=== PATIENT | male | born 1985 | race Caucasian/White ===

== ENCOUNTER 2020-01-29 23:16 | Emergency (ER) | payer OTHER, SELFPAY ==
--- NOTE | ~2020-01-29 | XR_ITS ---
EXAMINATION: XR chest 1V portable EXAM DATE: 01/29/2020 23:52 INDICATION: Midsternal chest pain, symptoms for days. TECHNIQUE: Portable AP frontal chest x-ray was obtained. Comparison is made to prior examination from 11/29/2009. FINDINGS: The lungs are clear. There are no pleural effusions. The cardiomediastinal silhouette is within normal limits. There is no pneumothorax suspected. The bones and soft tissues are unremarkab le. IMPRESSION: Unremarkable chest x-ray exam. Reviewed, dictated and finalized at location G.
[2020-01-29 23:24] VITALS: BP 160/79; PULSE 109; RESP 16; TEMP 36.8; O2SAT 100
--- NOTE | 2020-01-29 23:26 | ECG_ITS ---
Measurements Intervals [place] Rate: 100 P: [place]: 0 QRS: -15 QRSD: 104 T: 32 QT: 329 QTc: 425 Interpretive Statements SINUS TACHYCARDIA WITH SINUS ARRHYTHMIA VOLTAGE CRITERIA FOR LVH CONSIDER INFERIOR INFARCT, AGE INDETERMINATE BASELINE ARTIFACT- V4 ABNORMAL ECG Electronically Signed On 01-30-2020 7:13:45 CDT by Patel Santiago D.O.
[2020-01-29 23:43] VITALS: PULSE 88
[2020-01-29 23:44] VITALS: O2SAT 99
[2020-01-29 23:47] LABS: Basophils Absolute Auto 0.1 K/mm3 (0.0-0.1); Eosinophils Absolute Auto 0.2 K/mm3 (0-0.3); Eosinophils Percent Auto 3.5 % (0-4.4); Hematocrit 46.7 % (42.0-52.0); Hemoglobin 15.4 g/dL (14.0-18.0); Immature Granulocyte Absolute 0.02 K/mm3 (0.00-0.031); Immature Granulocyte Percent A 0.3 % (0-0.5); Lymphocytes Absolute Auto 1.82 K/mm3 (0.9-3.2); Lymphocytes Percent Auto 28.8 % (18.3-44.2); Mean Corpuscular Hemoglobin 28.1 pg (26-34); Mean Corpuscular Volume 85.2 fl (80-100); Mean Platelet Volume 9.3 fl (7.4-10.4); Monocytes Absolute Auto 0.5 K/mm3 (0.1-0.6); Monocytes Percent Auto 8.1 % (2.6-8.5); Neutrophils Absolute Auto 3.7 K/mm3 (1.3-6.7); Neutrophils Percent Auto 58.3 % (45.5-73.1); Platelet Count Result 355 k/mm3 (150-375); Red Blood Count 5.48 M/mm3 (4.6-6.20); Red Cell Distribution Width 12.7 % (11.5-14.5); White Blood Count 6.3 K/mm3 (4.5-10.0)
[2020-01-29 23:57] LABS: INR 0.9; Prothrombin Time 11.8 Seconds (11.1-14.7)
[2020-01-29 23:58] LABS: Partial Thromboplastin Time 27.2 SECONDS (22.3-36.8)
[2020-01-30 00:01] LABS: Blood Urea Nitrogen 15 mg/dL (9-20); Calcium 9.6 mg/dL (8.4-10.2); Carbon Dioxide 28 mmol/L (22-30); Chloride 104 mmol/L (98-107); Estimated CRCL calculation 115 ml/min; Estimated Glomerular Filt Rate > 60; Glucose 132 mg/dL (75-110); Potassium 3.7 mmol/L (3.4-5.0); Sodium 139 mmol/L (137-145)
[2020-01-30 00:12] LABS: Troponin I < 0.012 ng/mL (0.000-0.034)
[2020-01-30 00:30] VITALS: BP 125/70; PULSE 80; RESP 14; O2SAT 97
[2020-01-30 01:41] VITALS: BP 112/80; PULSE 75; RESP 13; O2SAT 100
[2020-01-30 02:41] VITALS: BP 124/77; PULSE 72; RESP 21; TEMP 36.3; O2SAT 99
[2020-01-30 03:57] LABS: Troponin I < 0.012 ng/mL (0.000-0.034)
--- NOTE | 2020-01-30 04:02 | ED.CHESTPAIN ---
HPI - Chest Pain General Chief Complaint: Chest Pain Stated Complaint: chest pressure Time Seen by Provider: 01/30/20 02:50 Source: patient Mode of arrival: ambulatory Limitations: no limitations History of Present Illness HPI narrative: This patient is a 34 yo male who presents with c/o sore throat and chest pain. Patient states for the past week he has felt like something is in his throat. He states he has been having mild pain with swallowing. Over the past 4 days he has had intermittent chest pain. He thinks it may be worse with working. He denies associated fever, chills, cough, nausea, vomiting or shortness of breath. He denies signs of DVT. 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 The telemedicine physician recommended patient come to ER for evaluation of chest pain and he also recommended patient be tested for COVID. He states he has minimal chest pain now Related Data Allergies Allergy/AdvReac Type Severity Reaction Status Date / Time No Known Allergies Allergy Verified 01/29/20 23:22 Review of Systems Review of Systems: All systems reviewed & are unremarkable except as noted in HPI and below Constitutional: Constitutional: Denies chills, Denies fever(s) and Denies weakness ENT: Reports dysphagia and Reports sore throat Cardiovascular: Cardiovascular: Reports chest pain, Denies rapid heart rate and Denies radiating jaw, neck or arm pain Respiratory: Respiratory: Denies cough, Denies dyspnea and Denies wheezing Gastrointestinal: Gastrointestinal: Denies abdominal pain, Denies diarrhea, Denies nausea and Denies vomiting Musculoskeletal: Musculoskeletal: Denies back pain PMFSH Past Medical History Medical History (Updated 01/30/20 @ 05:45 by Jaelyn Caldwell MD) Patient denies medical problems Surgical History Surgical History (Updated 01/30/20 @ 04:03 by Jaelyn Caldwell MD) No pertinent past surgical history Social History Social History (Updated 01/30/20 @ 04:03 by Jaelyn Caldwell MD) Smoking status: Never smoker Alcohol intake: never Substance use type: marijuana Exam Narrative: Exam Narrative: GENERAL: Well-appearing, well-nourished, and in no acute distress. HEAD: Normocephalic, atraumatic EYES: PERRLA and EOMI, conjunctiva clear without discharge EARS: TM's clear bilaterally without erythema or dullness NOSE: Nares clear, no rhinorrhea or epistaxis THROAT:Mucous membranes moist, mild erythema and edema to uvula NECK: Supple, without lymphadenopathy or mass RESPIRATORY: No respiratory distress, Airway patent, Respirations non-labored, Clear to auscultation without rales, rhonchi or wheeze HEART: Regular rate and rhythm. No murmur heard. Normal peripheral pulses. ABDOMEN: Soft, nontender, nondistended, normal active bowel sounds. No masses. No rebound or guarding, No organomegaly. EXTREMITIES: No edema, normal strength with full range of motion. SKIN: Warm, dry, normal color without rash NEURO: Alert and oriented x3. CN 2-12 grossly intact. No focal deficits. PSYCH: Normal mood and affect. Course Reevaluation(s) Reevaluation #1: PAtient states his pain has improved after taking GI cocktail. He understands he will need to follow up with PCP. He is pending covid results. His pain is atypical chest pain. Date: 01/30/20 Time: 05:43 Vital Signs Vital signs: Vital Signs Temperature 98.2 F 01/29/20 23:24 Pulse Rate 109 H 01/29/20 23:24 Respiratory Rate 16 01/29/20 23:24 Blood Pressure 160/79 H 01/29/20 23:24 Pulse Oximetry 100 01/29/20 23:24 Temperature 97.9 F 01/30/20 06:06 Pulse Rate 71 01/30/20 06:06 Respiratory Rate 17 01/30/20 06:06 Blood Pressure 125/69 01/30/20 06:06 Pulse Oximetry 100 01/30/20 06:06 MDM - Chest Pain Lab Data Attestation: I reviewed the patient's lab results. Result diagrams: 01/29/20 23:39 01/29/20 23:39 Labs: Lab Results
[2020-01-30 04:12] VITALS: BP 111/71; PULSE 75; RESP 14; O2SAT 100
[2020-01-30 04:15] LABS: Lipase 58 U/L (23-300)
[2020-01-30 04:17] LABS: D Dimer 0.27 ug/mL (<0.48)
[2020-01-30] MEDS: BELLADONNA ALK/PHENOB ELIX 10 ML, MAG HYDROX/ALUMINUM HYD/SIMETH 30 ML, LIDOCAINE HCL 2... PO (04:29)
[2020-01-30 06:06] VITALS: BP 125/69; PULSE 71; RESP 17; TEMP 36.6; O2SAT 100
[2020-01-30 14:46] LABS: SARS-CoV-2 RNA PCR Negative
== END 2020-01-30 06:17 | disposition home or self-care (01) ==
PROVIDERS: Emergency Provider General Practice
DX: R07.89 Other chest pain (principal); J02.9 Acute pharyngitis, unspecified; Z20.828 Contact with and (suspected) exposure to other viral communicable diseases; R00.0 Tachycardia, unspecified; R94.31 Abnormal electrocardiogram [ECG] [EKG]
CPT/HCPCS: 36415; 71045; 80048; 83690; 84484; 85025; 85380; 85610; 85730; 87081; 87635; 87880; 93005; 99284; A9270; C9803; U0003

== ENCOUNTER 2020-06-10 16:24 | Emergency (ER) | payer OTHER, SELFPAY ==
--- NOTE | ~2020-06-10 | CT_ITS ---
EXAMINATION: CT abdomen pelvis w con INDICATION: Epigastric abdominal pain TECHNIQUE: Computed tomographic images of the abdomen and pelvis were obtained after the administrati on of 100 cc of Omnipaque 350 intravenous contrast. The dose-length product (DLP) was 1536.99 mGy-cm. Automated exposure control and iterative reconstruction technique were employed. COMPARISON: None available FINDINGS: The lung bases are clear. The heart size is normal. There is mild wall thickening of the di stal esophagus. The liver, spleen, pancreas, gallbladder, and adrenal glands are normal. There is a 2 .5 cm cyst of the left kidney. The right kidney is unremarkable. No pathologically enlarged abdominal or pelvic lymph nodes are identified. There is no free intraperitoneal gas or evidence of bowel obst ruction. There are appendicoliths in the otherwise normal appendix. IMPRESSION: 1. Mild wall thickening of the distal esophagus which could reflect esophagitis. Reviewed, dictated and finalized at location A. IMPRESSION: 1. Mild wall thickening of the distal esophagus which could reflect esophagitis .
[2020-06-10 16:58] VITALS: BP 146/82; PULSE 90; RESP 18; TEMP 36.9; O2SAT 100
[2020-06-10 17:14] LABS: Basophils Absolute Auto 0.1 K/mm3 (0.0-0.1); Basophils Percent Auto 0.9 % (0.2-1.2); Eosinophils Absolute Auto 0.4 K/mm3 (0-0.3); Eosinophils Percent Auto 4.7 % (0-4.4); Hematocrit 44.9 % (42.0-52.0); Immature Granulocyte Absolute 0.02 K/mm3 (0.00-0.031); Immature Granulocyte Percent A 0.2 % (0-0.5); Lymphocytes Absolute Auto 2.63 K/mm3 (0.9-3.2); Lymphocytes Percent Auto 30.4 % (18.3-44.2); Mean Corpuscular HGB Conc 33.4 g/dl (32-36); Mean Corpuscular Hemoglobin 28.3 pg (26-34); Mean Corpuscular Volume 84.7 fl (80-100); Mean Platelet Volume 9.2 fl (7.4-10.4); Monocytes Absolute Auto 0.6 K/mm3 (0.1-0.6); Monocytes Percent Auto 6.4 % (2.6-8.5); Neutrophils Percent Auto 57.4 % (45.5-73.1); Platelet Count Result 317 k/mm3 (150-375); Red Cell Distribution Width 12.9 % (11.5-14.5); White Blood Count 8.7 K/mm3 (4.5-10.0)
[2020-06-10 17:26] LABS: Alanine Aminotransferase 52 U/L (4-50); Albumin Level 4.4 g/dL (3.5-5.1); Alkaline Phosphatase 58 U/L (38-126); Anion Gap 8 mmol/L (8-16); Aspartate Amino Transferase 32 U/L (17-59); Bilirubin,Total 1.5 mg/dL (0.2-1.3); Blood Urea Nitrogen 15 mg/dL (9-20); Calcium 9.6 mg/dL (8.4-10.2); Carbon Dioxide 26 mmol/L (22-30); Chloride 103 mmol/L (98-107); Estimated CRCL calculation 144 ml/min; Estimated Glomerular Filt Rate > 60; Glucose 97 mg/dL (75-110); Lipase 40 U/L (23-300); Potassium 3.9 mmol/L (3.4-5.0); Sodium 137 mmol/L (137-145)
[2020-06-10 17:33] LABS: Add Urine Microscopic? NO; Appearance Urine Clear (Clear); Bilirubin Urine Negative (Negative); Blood Urine Negative (Negative); Color Urine Yellow (Yellow); Glucose Urine UA Negative (Negative); Ketones Urine Negative (Negative); Leukocyte Esterase Ur Negative LEU/UL (Negative); Nitrate Urine Negative (Negative); Protein Urine Negative (Negative); Specific Grav Ur 1.019 (1.001-1.035); Urobilinogen Urine Negative mg/dL (<2.0)
[2020-06-10 21:35] VITALS: BP 158/85; PULSE 71; RESP 17; O2SAT 99
--- NOTE | 2020-06-10 21:37 | ED.ABDPAIN ---
HPI - Abdominal Pain General Chief Complaint: Abdominal Pain Stated Complaint: abd pain Time Seen by Provider: 06/10/20 21:35 History of Present Illness HPI narrative: Pt c/o abd pain, epigastric, sharp, 6/10, radiating to back, started months ago but worse the past few weeks, exacerbated by food. Denies any cp, sob, n/v/d or fever. Denies any GI bleeding. Related Data Allergies Allergy/AdvReac Type Severity Reaction Status Date / Time No Known Allergies Allergy Verified 01/29/20 23:22 Review of Systems Review of Systems: All systems reviewed & are unremarkable except as noted in HPI and below Constitutional: Constitutional: Denies body ache(s), Denies chills, Denies excessive sweating, Denies fatigue, Denies fever(s), Denies headache(s), Denies lethargy, Denies malaise, Denies weakness and Denies weight loss Eyes: Eyes: Denies blurry vision, Denies change in vision and Denies loss of vision ENT: Denies dizziness, Denies ear discharge, Denies headache(s), Denies lip swelling, Denies epistaxis, Denies nasal congestion, Denies neck pain, Denies throat swelling and Denies tongue swelling Cardiovascular: Cardiovascular: Denies chest pain, Denies chest pain at rest, Denies chest pain with activity, Denies diaphoresis, Denies rapid heart rate, Denies edema, Denies irregular heart rhythm, Denies lightheadedness, Denies palpitations, Denies dyspnea and Denies dyspnea on exertion Respiratory: Respiratory: Denies chest congestion, Denies cough, Denies hemoptysis, Denies dyspnea and Denies dyspnea on exertion Gastrointestinal: Gastrointestinal: Denies melena, Denies hematochezia, Denies diarrhea, Denies nausea, Denies vomiting and Denies hematemesis Musculoskeletal: Musculoskeletal: Denies abnormal gait, Denies deformity, Denies joint swelling, Denies limited range of motion, Denies neck pain and Denies numbness Neurologic: Denies Abnormal speech present, Denies abnormal gait, Denies confusion, Denies dizziness, Denies headache(s), Denies focal weakness, Denies loss of vision, Denies numbness, Denies Other visual disturbances, Denies Sensory deficit (Neuro) and Denies weakness Psychiatric: Psychiatric: Denies confusion, Denies depression, Denies auditory hallucinations, Denies homicidal ideation and Denies suicidal ideation Endocrine: Endocrine: Denies cold intolerance, Denies excessive sweating, Denies fatigue, Denies heat intolerance and Denies palpitations Hematologic/Lymphatic: Hematologic/Lymphatic: Denies easy bleeding and Denies easy bruising Allergic/Immunologic: Allergic/Immunologic: Denies lip swelling, Denies throat swelling and Denies tongue swelling PMFSH Past Medical History Medical History (Updated 06/10/20 @ 23:51 by Brian Riley MD) Patient denies medical problems Surgical History Surgical History (Updated 01/30/20 @ 04:03 by Jaelyn Caldwell MD) No pertinent past surgical history Social History Social History (Updated 01/30/20 @ 04:03 by Jaelyn Caldwell MD) Smoking status: Never smoker Alcohol intake: never Substance use type: marijuana Gender identity (if verbalized by the patient): Male Exam Const: General: cooperative, healthy appearing, comfortable, no acute distress, well developed, alert and awake; No confusion Orientation/consciousness: oriented to person, oriented to place, oriented to time, patient oriented x3 and No confusion Limitations: no limitations HENMT: Head: normal to inspection, normocephalic and atraumatic Ears: hearing grossly normal bilaterally, TM normal on the right and TM normal on the left General nose exam: Normal external nose present, Normal nares present and No nasal discharge present Face and sinus: normal facial exam Mouth: Yes Normal oral and palatal mucosa present, Yes lip normal, Yes tongue normal and Yes oropharynx normal Throat: posterior oropharynx normal, tonsils normal and uvula midline Eyes: General: appearance normal, both eyes and all relate
[2020-06-10 22:54] VITALS: BP 99/71; PULSE 66; RESP 17; O2SAT 97
[2020-06-11 00:10] VITALS: BP 126/74; PULSE 78; RESP 18; O2SAT 99
== END 2020-06-11 00:11 | disposition home or self-care (01) ==
PROVIDERS: Emergency Medicine; Emergency Provider Emergency Medicine
DX: K21.9 Gastro-esophageal reflux disease without esophagitis (principal); R93.3 Abnormal findings on diagnostic imaging of other parts of digestive tract
CPT/HCPCS: 36415; 74177; 80053; 81003; 83690; 85025; 99284; Q9967

== ENCOUNTER 2023-04-05 11:03 | Emergency (ER) | payer OTHER, SELFPAY ==
[2023-04-05] VITALS (21 sets, daily range): BP systolic 122–155; BP diastolic 79–84; PULSE 58–77; RESP 12–20; TEMP 36.4; O2SAT 99–100
--- NOTE | ~2023-04-05 | CT_ITS ---
EXAMINATION: CT abdomen pelvis w con DATE: 04/05/2023 15:11 INDICATION: Diffuse abdominal tenderness, radiating into groin. Nausea. Possible hernia. TECHNIQUE: Computed tomography (CT) of the abdomen and pelvis was performed with 100 CC Omnipaque 350 intravenous contrast. Automated exposure control and iterative reconstruction technique were employe d. Exam dose: 1530.20 mGy-cm total exam DLP. COMPARISON: 06/10/2020 CT abdomen pelvis FINDINGS: The lung bases are clear. Normal heart size. Calcified right hilar nodes consistent with ol d pulmonary granulomatous disease. No pericardial or pleural effusion. Small sliding hiatal hernia. 7 mm lateral segment left hepatic cyst. The liver, spleen, gallbladder, bile ducts, pancreas, pancrea tic duct and adrenal glands are otherwise unremarkable. Normal right kidney. Approximately 2.3 cm left renal cyst. The left kidney is otherwise unremarkable. No urinary tract calculus or hydroureteronephrosis. The urinary bladder and prostate gland are unrem arkable. Normal caliber of the abdominal aorta. No intraperitoneal or retroperitoneal or pelvic mass lesion or adenopathy or ascites is noted. There are appendicoliths. The largest measures up to 5.5 mm. No appendiceal dilatation. There is no s ignificant change in appearance of the appendix or the appendicolith since 06/10/2020. There is no adalberto rounding inflammatory change or abnormal fluid collection. Mild colonic diverticulosis; no CT evidenc e of diverticulitis. No bowel obstruction or intraperitoneal free air. IMPRESSION: Chronic appendicoliths, unchanged since 06/10/2020 Diverticulosis of the colon; no CT evidence of diverticulitis 7 mm lateral segment left hepatic cyst and 2.3 cm left renal cyst Reviewed, dictated and finalized at Location [facility]. Reviewed, dictated and finalized at location B.
--- NOTE | 2023-04-05 12:59 | ECG_ITS ---
Measurements Intervals [place] Rate: 59 P: 54 [place]: 146 QRS: -1 QRSD: 93 T: 13 QT: 387 QTc: 385 Interpretive Statements SINUS BRADYCARDIA BASELINE ARTIFACT- I, III, AVR, AVL BORDERLINE ECG COMPARED TO ECG 01/29/2020 23:26:16 SINUS BRADYCARDIA NOW PRESENT Electronically Signed On 04-05-2023 14:35:15 CDT by Patel Santiago D.O.
[2023-04-05 13:12] LABS: Basophils Absolute Auto 0.1 K/mm3 (0.0-0.1); Basophils Percent Auto 0.9 % (0.2-1.2); Eosinophils Absolute Auto 0.4 K/mm3 (0-0.3); Eosinophils Percent Auto 5.5 % (0-4.4); Hematocrit 43.5 % (42.0-52.0); Hemoglobin 14.1 g/dL (14.0-18.0); Immature Granulocyte Absolute 0.01 K/mm3 (0.00-0.031); Immature Granulocyte Percent A 0.1 % (0-0.5); Lymphocytes Absolute Auto 1.78 K/mm3 (0.9-3.2); Lymphocytes Percent Auto 25.6 % (18.3-44.2); Mean Corpuscular HGB Conc 32.4 g/dl (32-36); Mean Corpuscular Volume 86.5 fl (80-100); Mean Platelet Volume 8.7 fl (7.4-10.4); Monocytes Absolute Auto 0.4 K/mm3 (0.1-0.6); Monocytes Percent Auto 6.3 % (2.6-8.5); Neutrophils Absolute Auto 4.3 K/mm3 (1.3-6.7); Neutrophils Percent Auto 61.6 % (45.5-73.1); Platelet Count Result 302 k/mm3 (150-375); Red Blood Count 5.03 M/mm3 (4.6-6.20); Red Cell Distribution Width 13.3 % (11.5-14.5); White Blood Count 6.9 K/mm3 (4.5-10.0)
[2023-04-05 13:17] LABS: Appearance Urine Clear (Clear); Bilirubin Urine Negative (Negative); Blood Urine Negative (Negative); Color Urine Yellow (Yellow); Glucose Urine UA Negative (Negative); Ketones Urine Negative (Negative); Leukocyte Esterase Ur Negative LEU/UL (Negative); Nitrate Urine Negative (Negative); Protein Urine Negative (Negative); Specific Grav Ur 1.019 (1.001-1.035); Urobilinogen Urine 0.2 mg/dL (<2.0)
[2023-04-05 13:31] LABS: Alanine Aminotransferase 32 U/L (6-50); Alkaline Phosphatase 52 U/L (38-126); Anion Gap 4 mmol/L (8-16); Aspartate Amino Transferase 25 U/L (17-59); Blood Urea Nitrogen 11 mg/dL (9-20); Calcium 8.7 mg/dL (8.4-10.2); Carbon Dioxide 33 mmol/L (22-30); Chloride 102 mmol/L (98-107); Estimated CRCL calculation 126 ml/min; Estimated Glomerular Filt Rate > 60; Glucose 91 mg/dL (65-110); Lipase 37 U/L (23-300); Potassium 4.1 mmol/L (3.4-5.0); Sodium 139 mmol/L (137-145)
[2023-04-05 13:41] LABS: Troponin I < 0.012 ng/mL (0.000-0.034)
[2023-04-05 14:13] LABS: Add Urine Microscopic? NO
--- NOTE | 2023-04-05 14:23 | ED.ABDPAIN ---
HPI - Abdominal Pain General Chief Complaint: Abdominal Pain Stated Complaint: hernia, abd pain Time Seen by Provider: 04/05/23 12:58 Source: patient Mode of arrival: ambulatory Limitations: no limitations History of Present Illness HPI narrative: Patient is a 37-year-old male who presents the ED with diffuse abdominal pain. Patient reports having intermittent pain for some time now, but states pain has become more bothersome and severe over the last couple of weeks. He complains of pain diffusely throughout his abdomen. He is concerned he may have a hernia. He states at times he has discomfort in his perineum, denies ever feeling a hernia bulge. Denies testicular pain or swelling. Denies urinary symptoms. Reports intermittent nausea, denies vomiting, diarrhea, constipation. Denies fevers. Patient has been taking antacids, acid reflux medication, and ibuprofen for the pain. Patient initially reported to ED triage nurse that he was having chest pain. Denied CP upon my evaluation. Related Data Allergies Allergy/AdvReac Type Severity Reaction Status Date / Time No Known Allergies Allergy Verified 01/29/20 23:22 Review of Systems Review of Systems: CONSTITUTIONAL: Denies fever, chills, or sweats. CARDIOVASCULAR: See HPI. RESPIRATORY: Denies dyspnea. GASTROINTESTINAL: See HPI. GENITOURINARY: See HPI. SKIN: Denies rash or itching. MUSCULOSKELETAL: Denies back pain, joint pain, or myalgia. All systems reviewed & are unremarkable except as noted in HPI and below PMFSH Past Medical History Medical History (Updated 04/05/23 @ 16:46 by Perla Rucker PA-C) Patient denies medical problems Surgical History Surgical History (Updated 01/30/20 @ 04:03 by Jaelyn Caldwell MD) No pertinent past surgical history Social History Social History (Updated 01/30/20 @ 04:03 by Jaelyn Caldwell MD) Smoking status: Never smoker Alcohol intake: never Substance use type: marijuana Gender identity (if verbalized by the patient): Male Exam Narrative: GENERAL: Well appearing, morbidly obese with BMI of 40.4, non-toxic, in no acute distress. HEAD: Normocephalic, atraumatic. NECK: Supple. No adenopathy, no masses. RESPIRATORY: Airway patent, respirations nonlabored. Clear to auscultation bilaterally, no rales, rhonchi, wheezing. CARDIOVASCULAR: Regular rate and rhythm without murmurs, rubs, or gallops. Radial pulses 2+ and equal bilaterally. ABDOMINAL: Soft, diffuse nonfocal tenderness to palpation throughout abdomen, no rebound. Nondistended, no hepatosplenomegaly. Normoactive BS. MUSCULOSKELETAL: Moves all extremities. Strength/ROM intact without gross deformities. SKIN: Warm, dry, normal color. No rashes. NEURO: A&O X3. Speech clear. Cranial nerves II-XII grossly intact. Steady gait. No ataxic movements. PSYCHIATRIC: Appropriate mood and affect. Normal interaction. Course Vital Signs Vital signs: Vital Signs Temperature 97.5 F L 04/05/23 11:04 Pulse Rate 77 04/05/23 11:04 Respiratory Rate 16 04/05/23 11:04 Blood Pressure 155/81 H 04/05/23 11:04 Pulse Oximetry 100 04/05/23 11:04 Temperature 97.5 F L 04/05/23 11:04 Pulse Rate 58 L 04/05/23 16:30 Respiratory Rate 12 04/05/23 16:30 Blood Pressure 122/79 04/05/23 14:46 Pulse Oximetry 100 04/05/23 16:30 MDM - Abdominal Pain MDM Narrative Medical decision making narrative: Patient presented to ED with several week history of diffuse abdominal pain, no significant associated symptoms. Vitals stable upon arrival. Afebrile. Patient with mild tenderness diffusely throughout abdomen, no focal tenderness. No signs of surgical abdomen on exam. CBC without leukocytosis or anemia. CMP unremarkable, no significant electrolyte abnormalities. Stable kidney function. Normal LFTs and lipase. Urinalysis without signs of infection or dehydration. EKG nonischemic. Troponin negative. Patient denying active chest pain. CT
== END 2023-04-05 17:04 | disposition home or self-care (01) ==
PROVIDERS: Emergency Medicine; Emergency Provider Physician Assistant
DX: R10.84 Generalized abdominal pain (principal); K57.30 Diverticulosis of large intestine without perforation or abscess without bleeding; K38.1 Appendicular concretions; R00.1 Bradycardia, unspecified
CPT/HCPCS: 36415; 74177; 80053; 81003; 83690; 84484; 85025; 93005; 99284; Q9967

== ENCOUNTER 2023-05-03 07:37 | Outpatient (CLI) | payer OTHER, SELFPAY ==
--- NOTE | ~2023-05-03 | US_ITS ---
EXAMINATION: US right upper quadrant DATE: 05/03/2023 08:19 INDICATION: Calculus of bile duct without cholangitis. TECHNIQUE: Multiple grayscale and Doppler ultrasound images of the abdomen were obtained. COMPARISON: CT abdomen and pelvis 04/05/2023 FINDINGS: The visualized portion of the body of the pancreas is normal. There is diffuse hepatic stea tosis. There is normal flow in main portal vein. The gallbladder is normal in size. No gallstones or gallbladder wall thickening. There is no sonographic Frausto sign. The common duct is normal and measu res 5 mm. IMPRESSION: 1. Diffuse hepatic steatosis. Reviewed, dictated and finalized at location A.
== END 2023-05-03 07:38 ==
LOC: GOSHIMG 07:38
PROVIDERS: PCP Emergency Medicine; Visit Provider Surgery
DX: K80.50 Calculus of bile duct without cholangitis or cholecystitis without obstruction (principal); K38.9 Disease of appendix, unspecified; K76.0 Fatty (change of) liver, not elsewhere classified
CPT/HCPCS: 76705

== ENCOUNTER 2023-05-06 07:50 | Outpatient (CLI) | payer OTHER, SELFPAY ==
--- NOTE | ~2023-05-06 | NM_ITS ---
EXAMINATION: NM hepatobiliary wo pharm DATE: 05/06/2023 10:49 INDICATION: Choledocholithiasis without cholangitis. COMPARISON: None. TECHNIQUE: 4.6 mCi Tc-99m mebrofenin (Choletec) was administered intravenously. Scintigraphic images of the abdomen were obtained for one hour. At the 1 hour time point, the patient drank 8 oz Ensure, and imaging was continued for 60 minutes. Gallbladder ejection fraction was calculated by the technol ogist. FINDINGS: There is normal clearance of radiotracer from the blood pool. There is homogeneous tracer u ptake by the liver. Activity progresses to the bowel and gallbladder. The gallbladder ejection fract ion (GBEF) is 32%. Note that with this technique, normal GBEF >= 33%. IMPRESSION: 1. Mildly decreased gallbladder ejection fraction consistent with gallbladder dysfunction or chronic cholecystitis in the appropriate clinical setting. Reviewed, dictated and finalized at location A.
== END 2023-05-06 07:51 | disposition home or self-care (01) ==
PROVIDERS: PCP Emergency Medicine; Visit Provider Surgery
DX: K80.50 Calculus of bile duct without cholangitis or cholecystitis without obstruction (principal); K38.9 Disease of appendix, unspecified
CPT/HCPCS: 78226; A9537

== ENCOUNTER 2024-11-21 16:47 | Emergency (ER) | payer OTHER, SELFPAY ==
--- NOTE | ~2024-11-21 | CT_ITS ---
EXAMINATION: CT lumbar spine wo con DATE: 11/21/2024 17:43 INDICATION: Lumbar radiculopathy. TECHNIQUE: Computed tomography (CT) of the lumbar spine was performed without intravenous contrast. A utomated exposure control and iterative reconstruction technique were employed. The dose-length produ ct was 1344.83 mGy-cm. COMPARISON: None FINDINGS: There is 4 degrees levocurvature of thoracolumbar spine. There is mild chronic anterior wed ging of T12 and L1 vertebral bodies. There is mildly decreased disc height at L4-L5. Osseous central spinal canal is developmentally small in lumbar spine. The following disc levels are specifically dis cussed: L1-L2: The disc does not extend beyond the endplate margin. There is mild bilateral facet joint osteo arthritis. There is no neural foraminal stenosis. There is no central canal stenosis. L2-L3: The disc does not extend beyond the endplate margin. There is moderate bilateral facet joint o steoarthritis. There is no neural foraminal stenosis. There is no central canal stenosis. L3-L4: The disc is bulging. There is moderate right and severe left facet joint osteoarthritis. There is mild bilateral neural foraminal stenosis. There is mild central canal stenosis. L4-L5: The disc is bulging. There is severe bilateral facet joint osteoarthritis. There is mild bilat eral neural foraminal stenosis. There is mild central canal stenosis. L5-S1: The disc is bulging. There is severe bilateral facet joint osteoarthritis. There is mild bilat eral neural foraminal stenosis. There is mild central canal stenosis. IMPRESSION: 1. Mild lumbar spondylosis. Reviewed, dictated and finalized at location A. ER CATCHER TOBACCO IMPRESSION: 1. Mild lumbar spondylosis.
--- NOTE | ~2024-11-21 | US_ITS ---
EXAMINATION: US venous doppler [facility] DATE: 11/21/2024 17:55 INDICATION: Lower limb swelling. TECHNIQUE: Grayscale ultrasound images without and with compression and Doppler ultrasound images of the bilateral lower extremity veins were obtained. COMPARISON: None. FINDINGS: The visualized portions of right common femoral vein, profunda (deep) femoral vein, femoral vein, pop liteal vein, peroneal veins, posterior tibial veins, and greater saphenous vein outflow are patent. The visualized portions of left common femoral vein, profunda femoral vein, femoral vein, popliteal v ein, and greater saphenous vein outflow are patent. There is thrombus in left posterior tibial and pe roneal veins. IMPRESSION: 1. Deep vein thrombosis involving the left posterior tibial and peroneal veins. Reviewed, dictated and finalized at location A. WORK ESTIMATOR IMPRESSION: 1. Deep vein thrombosis involving the left posterior tibial and peroneal veins .
--- NOTE | ~2024-11-21 | CT_ITS ---
EXAMINATION: CTA chest PE protocol DATE: 11/21/2024 19:34 PODIATRIC TECHNICIAN INDICATION: Intermittent chest pain with unilateral below the knee venous thrombosis. TECHNIQUE: Computed tomographic angiography (CTA) of the chest was performed with 100 mL Omnipaque-35 0 intravenous contrast. The dose-length product was 1032.52 mGy-cm. Maximum intensity projection 3D-r econstructions of the aorta and other arteries were constructed by the technologist on a separate wor kstation. COMPARISON: None. FINDINGS/OBSERVATIONS: PULMONARY ARTERIES: No filling defect is identified within the main or proximal pulmonary artery. The main pulmonary artery is not enlarged. THORACIC AORTA: No aneurysmal dilatation or dissection is present. The great vessels are intact LUNGS: The lungs are clear. MEDIASTINUM: No morphologically suspicious or pathologically enlarged lymph nodes are identified with in the mediastinum or bilateral axilla. BONES OF THE CHEST: No acute fracture. No significant degenerative disease. No lytic or blastic lesions. HEART: The heart is enlarged, without pericardial effusion. IMPRESSION: No pulmonary embolus. No thoracic aortic dissection. The lungs are clear. Reviewed, dictated and finalized at location A. ATRIC TECHNICIAN
[2024-11-21 16:53] VITALS: BP 173/108; PULSE 97; RESP 20; TEMP 36.4; O2SAT 100
--- NOTE | 2024-11-21 17:37 | ED_ITS ---
HPI - Extremity Problem General Chief complaint: Extremity Problem,Nontraumatic Stated complaint: ?DVT Time Seen by Provider: 11/21/24 17:15 History of Present Illness HPI Narrative: 39-year-old male with no past medical history presents to emergency department for concerns for DVT. Patient states he has been having 3 weeks of pain to the superior medial thighs bilaterally. No injury or trauma to this region. Since that time he gets numbness and tingling that radiates down into his feet. He does report pain diffusely through his back. Denies saddle anesthesia, bowel or bladder incontinence. States he is unsure if he has had some lower extremity edema. He denies history of DVT. He does state that a few days ago he rode in a car for 12 hours coming home from vacation. He states the pain is worse when he sits in certain positions for long periods of time. Patient states he goes his symptoms and wanted to make sure he did not have any blood clots. Related Data Allergies Allergy/AdvReac Type Severity Reaction Status Date / Time No Known Allergies Allergy Verified 11/21/24 16:56 Review of Systems 2 Review of Systems: All systems reviewed & are unremarkable except as noted in HPI and below PMFSH Past Medical History Medical History Patient denies medical problems Surgical History Surgical History No pertinent past surgical history Social History Social History Smoking status: Never smoker Alcohol intake: never Substance use type: marijuana Gender identity (if verbalized by the patient): Male Exam 2 Narrative: GENERAL: Well-appearing, well-nourished, and in no acute distress. HEAD: Normocephalic, atraumatic. EYES: EOMI. ENT: Nares clear, no rhinorrhea or epistaxis. Mucous membranes moist. NECK: Supple. BACK: Mild lumbar spinous tenderness or spinous tenderness without crepitus, step-offs or deformities. No tenderness to thoracic spine CHEST: Clear to auscultation. No respiratory distress. HEART: Regular rate and rhythm. No murmur heard. Normal peripheral pulses. ABDOMEN: Soft, nontender, nondistended, normal active bowel sounds. EXTREMITIES: Minimal tenderness to palpation of the superior medial thigh bilaterally with no overlying skin changes or deformity. Negative Homans bilaterally. DP pulses 2+. Sensation intact. Negative straight leg raise bilaterally. No edema SKIN: Warm, dry, no rash. NEURO: No focal deficits. Alert and oriented x3 Course Vital Signs Vital signs: Vital Signs Temperature 97.6 F 11/21/24 16:53 Pulse Rate 97 11/21/24 16:53 Respiratory Rate 20 11/21/24 16:53 Blood Pressure 173/108 H 11/21/24 16:53 Pulse Oximetry 100 11/21/24 16:53 Oxygen Delivery Room Air 11/21/24 16:53 Temperature 97.6 F 11/21/24 16:53 Pulse Rate 67 11/21/24 18:01 Respiratory Rate 17 11/21/24 18:01 Blood Pressure 140/87 11/21/24 18:01 Pulse Oximetry 98 11/21/24 18:01 Oxygen Delivery Room Air 11/21/24 16:53 MDM - Extremity (Nontraumatic) MDM Narrative Medical decision making narrative: 39-year-old male presents emergency department for bilateral lower extremity pain for the past 3 weeks. Patient endorses concern for DVTs. Triage vitals with hypertension, otherwise unremarkable. He is afebrile nontoxic appearing. Exam significant for the above. He does have some mild lumbar tenderness on exam but is neurovascularly intact. He has no red flag back pain signs. Will obtain bilateral dopplers and CT lumbar spine. CT lumbar spine shows mild lumbar spondylosis. Bilateral lower extremity Dopplers shows ET to the posterior tibial and peroneal veins. Patient was updated on results. Upon further questioning he is endorsing intermittent chest tightness to the left side but he cannot identify any aggravating alleviating factors. Has endorse some shortness of breath. No history of PE. Denies hemoptysis, lightheadedness or dizziness. Will add on lab work, chest pain workup and CTA chest PE for further evaluation. EKG shows normal sinus rhythm with sinus arrhythmia, normal VT interval, normal QRS duration, normal QTC, no ischemic changes. Troponin within normal limits. CTA chest PE shows no PE. Patient updated on results. BP improved. HAS BLED score is 0. He has normal renal function. No recent head injury or trauma, no active GI bleed. He does endorse having bright red blood with the bowel movements a week ago but that has since resolved. He does endorse history of hemorrhoids. I did offer she from a rectal exam hemoccult however patient politely declined given bleeding has resolved. Pt will be started on Eliquis for DVT. Advised to f/u with PCP. Discussed return precautions. He is agreeable with the plan and verbalized understanding. D/c in stable condition. Lab Data 11/21/24 18:29 11/21/24 18:29 Labs: Lab Results 11/21/24 11/21/24 11/21/24 Range/Units 18:29 18:29 18:29 WBC 8.8 (4.5-10.0) K/mm3 RBC 4.87 (4.6-6.20) M/mm3 Hgb 13.8 L (14.0-18.0) g/dL Hct 42.1 (42.0-52.0) % MCV 86.4 (80-100) fl MCH 28.3 (26-34) pg MCHC 32.8 (32-36) g/dl RDW 13.7 (11.5-14.5) % Plt Count 314 (150-375) k/mm3 MPV 8.9 (7.4-10.4) fl Immature Gran % (Auto) 0.2 (0-0.5) % Neut % (Auto) 57.0 (45.5-73.1) % Lymph % (Auto) 30.0 (18.3-44.2) % Latimer % (Auto) 8.3 (2.6-8.5) % Eos % (Auto) 3.6 (0-4.4) % Baso % (Auto) 0.9 (0.2-1.2) % Lymph # (Auto) 2.63 (0.9-3.2) K/mm3 Latimer # (Auto) 0.7 H (0.1-0.6) K/mm3 Eos # (Auto) 0.3 (0-0.3) K/mm3 Baso # (Auto) 0.1 (0.0-0.1) K/mm3 Abs Immat Gran (auto) 0.02 (0.00-0.031) K/mm3 Absolute Neuts (auto) 5.0 (1.3-6.7) K/mm3 Absolute Nucleated RBC 0.000 (0.0-0.012) K/mm3 Nucleated RBC % 0.0 (0.0-0.2) % PT 12.5 (11.1-14.7) Seconds INR 0.9 APTT 25.7 (22.3-36.8) Seconds Sodium Cancelled 139 Potassium Cancelled 4.2 Chloride Cancelled Carbon Dioxide Anion Gap BUN Creatinine Estim Creat Clear Calc Estimated GFR Glucose Calcium Troponin I (0.000-0.034) ng/mL NT-Pro-B Natriuret Pep (19.9-100) pg/mL Lipase (23-300) U/L 11/21/24 11/21/24 11/21/24 Range/Units 18:29 18:29 18:29 WBC (4.5-10.0) K/mm3 RBC (4.6-6.20) M/mm3 Hgb (14.0-18.0) g/dL Hct (42.0-52.0) % MCV (80-100) fl MCH (26-34) pg MCHC (32-36) g/dl RDW (11.5-14.5) % Plt Count (150-375) k/mm3 MPV (7.4-10.4) fl Immature Gran % (Auto) (0-0.5) % Neut % (Auto) (45.5-73.1) % Lymph % (Auto) (18.3-44.2) % Latimer % (Auto) (2.6-8.5) % Eos % (Auto) (0-4.4) % Baso % (Auto) (0.2-1.2) % Lymph # (Auto) (0.9-3.2) K/mm3 Latimer # (Auto) (0.1-0.6) K/mm3 Eos # (Auto) (0-0.3) K/mm3 Baso # (Auto) (0.0-0.1) K/mm3 Abs Immat Gran (auto) (0.00-0.031) K/mm3 Absolute Neuts (auto) (1.3-6.7) K/mm3 Absolute Nucleated RBC (0.0-0.012) K/mm3 Nucleated RBC % (0.0-0.2) % PT (11.1-14.7) Seconds INR APTT (22.3-36.8) Seconds Sodium Potassium Chloride 101 Carbon Dioxide Cancelled 29 Anion Gap Cancelled 9 BUN Cancelled Creatinine Estim Creat Clear Calc Estimated GFR Glucose Calcium Troponin I (0.000-0.034) ng/mL NT-Pro-B Natriuret Pep (19.9-100) pg/mL Lipase (23-300) U/L 11/21/24 11/21/24 11/21/24 Range/Units 18:29 18:29 18:29 WBC (4.5-10.0) K/mm3 RBC (4.6-6.20) M/mm3 Hgb (14.0-18.0) g/dL Hct (42.0-52.0) % MCV (80-100) fl MCH (26-34) pg MCHC (32-36) g/dl RDW (11.5-14.5) % Plt Count (150-375) k/mm3 MPV (7.4-10.4) fl Immature Gran % (Auto) (0-0.5) % Neut % (Auto) (45.5-73.1) % Lymph % (Auto) (18.3-44.2) % Latimer % (Auto) (2.6-8.5) % Eos % (Auto) (0-4.4) % Baso % (Auto) (0.2-1.2) % Lymph # (Auto) (0.9-3.2) K/mm3 Latimer # (Auto) (0.1-0.6) K/mm3 Eos # (Auto) (0-0.3) K/mm3 Baso # (Auto) (0.0-0.1) K/mm3 Abs Immat Gran (auto) (0.00-0.031) K/mm3 Absolute Neuts (auto) (1.3-6.7) K/mm3 Absolute Nucleated RBC (0.0-0.012) K/mm3 Nucleated RBC % (0.0-0.2) % PT (11.1-14.7) Seconds INR APTT (22.3-36.8) Seconds Sodium Potassium Chloride Carbon Dioxide Anion Gap BUN 14 Creatinine Cancelled 0.83 Estim Creat Clear Calc Cancelled 139 Estimated GFR Cancelled Glucose Calcium Troponin I (0.000-0.034) ng/mL NT-Pro-B Natriuret Pep (19.9-100) pg/mL Lipase (23-300) U/L 11/21/24 11/21/24 11/21/24 Range/Units 18:29 18:29 18:29 WBC (4.5-10.0) K/mm3 RBC (4.6-6.20) M/mm3 Hgb (14.0-18.0) g/dL Hct (42.0-52.0) % MCV (80-100) fl MCH (26-34) pg MCHC (32-36) g/dl RDW (11.5-14.5) % Plt Count (150-375) k/mm3 MPV (7.4-10.4) fl Immature Gran % (Auto) (0-0.5) % Neut % (Auto) (45.5-73.1) % Lymph % (Auto) (18.3-44.2) % Latimer % (Auto) (2.6-8.5) % Eos % (Auto) (0-4.4) % Baso % (Auto) (0.2-1.2) % Lymph # (Auto) (0.9-3.2) K/mm3 Latimer # (Auto) (0.1-0.6) K/mm3 Eos # (Auto) (0-0.3) K/mm3 Baso # (Auto) (0.0-0.1) K/mm3 Abs Immat Gran (auto) (0.00-0.031) K/mm3 Absolute Neuts (auto) (1.3-6.7) K/mm3 Absolute Nucleated RBC (0.0-0.012) K/mm3 Nucleated RBC % (0.0-0.2) % PT (11.1-14.7) Seconds INR APTT (22.3-36.8) Seconds Sodium Potassium Chloride Carbon Dioxide Anion Gap BUN Creatinine Estim Creat Clear Calc Estimated GFR > 60 Glucose Cancelled 96 Calcium Cancelled 9.8 Troponin I < 0.012 (0.000-0.034) ng/mL NT-Pro-B Natriuret Pep 36 (19.9-100) pg/mL Lipase 43 (23-300) U/L Discharge Plan Discharge Clinical Impression: DVT (deep venous thrombosis) Qualifiers: DVT location: lower extremity Affected thrombotic vein of extremity: peroneal C hronicity: acute Laterality: left Qualified Code(s): I82.452 - Acute embolism and thrombosis of left peroneal vein Patient Disposition: Home, Self-Care Condition: Stable Instructions: Antibiotic Form, Deep Vein Thrombosis (DC) Additional Instructions: Your evaluated in the emergency department with leg pain. Your found have a blood clot in her left leg. You were started on a blood thinner, please take this as directed. Make sure to follow-up with primary care provider. Return to the emergency department if you develop blood in your stools, dark tarry stools, head injury or trauma, chest pain or shortness of breath, or other concerning symptoms. Do not drink alcohol with this medicine and refrain from using NSAIDs such as Aleve, naproxen, ibuprofen, Advil, Motrin. Patient Language: Bolivian Prescriptions: New Eliquis DVT-PE Treat 30D Start 5 mg (74 tabs) tablets,dose pack See Rx Instructions .ROUTE .COMPLEX Qty: 74 0RF Rx Instructions: orally per package directions Follow-up/Referrals: Jair Pierson MD [Physician] - UNKNOWN,DOCTOR [Primary Care Provider] -
[2024-11-21 18:01] VITALS: BP 140/87; PULSE 67; RESP 17; O2SAT 98
[2024-11-21] MEDS: IBUPROFEN 400 MG TABLET 800 MG PO (18:05)
--- NOTE | 2024-11-21 18:08 | ECG_ITS ---
Test Date: 2024-11-21 18:19:27 Measurements Intervals Jemison Rate: 77 P: 40 NM: 134 QRS: 1 QRSD: 93 T: 25 QT: 358 QTc: 406 Interpretive Statements SINUS RHYTHM WITH SINUS ARRHYTHMIA MINIMAL VOLTAGE CRITERIA FOR LVH, CONSIDER NORMAL VARIANT [MEETS CRITERIA IN ONE OF: R(aVL), S(V1), R(V5), R(V5/V6)+S(V1)] No previous ECG available for comparison Electronically Signed On 11-22-2024 13:11:49 HUMAN RESOURCES BENEFITS ASSISTANT by Hakeem Carlos M.D.
--- OUTSIDE RECORDS SUMMARY | 2024-11-21 18:25 | XMS_ITS | CONTINUITY OF CARE DOCUMENT ---
Author Name paul miller Address Unknown Organization [facility] Address [address] [place] [address] Phone [phone] Care Team Providers Care Wood Model Maker Name Role Phone Carlie BERNAL, Amilcar Unavailable JAYNA GONZALES MD Unavailable [phone] JAYNA GONZALES MD Unavailable [phone] INSURANCE PROVIDERS Payer name Policy type / Coverage type [place] red republican ID [id number] [id number]
--- OUTSIDE RECORDS SUMMARY | 2024-11-21 18:25 | XMS_ITS | Clinical Summary ---
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 Gender Identity Not on file Sexual Orientation Not on file Plan of Treatment Health Maintenance Due Date Last Done Comments Hepatitis C Virus (HCV) Screening 1985 TdaP Immunization 1985 Hepatitis B Immunization (1 of 3 - 19+ 3-dose series) 2002 Influenza Immunization (#1) 2024 SARS-COV-2 Immunization (2023- season) 2024 07/10/2021, 12/08/2020, 11/17/2020 Respiratory Syncytial Virus (RSV) Immunization (Adult) (1 - 1-dose 75+ series) 2058 Meningococcal Immunization (ACWY) Aged Out No longer eligible b ased on patient's age to complete this topic Pneumococcal Immunization Combined Aged Out No longer eligible b ased on patient's age to complete this topic Rotavirus Immunization Aged Out No lo nger eligible based on patient's age to complete this topic
--- OUTSIDE RECORDS SUMMARY | 2024-11-21 18:35 | XMS_ITS | CONTINUITY OF CARE DOCUMENT ---
Author Name paul miller Address Unknown Organization [facility] Address [address] [address] [place] [address] Phone [phone] Care Team Providers Care Pot Fireman Name Role Phone Carlie BERNAL, Amilcar Unavailable JAYNA GONZALES MD Unavailable [phone] JAYNA GONZLAES MD Unavailable [phone] INSURANCE PROVIDERS Payer name Policy type / Coverage type [place] red republican ID [employer]ONTANA [id number]
[2024-11-21 18:38] LABS: Basophils Absolute Auto 0.1 K/mm3 (0.0-0.1); Basophils Percent Auto 0.9 % (0.2-1.2); Eosinophils Absolute Auto 0.3 K/mm3 (0-0.3); Eosinophils Percent Auto 3.6 % (0-4.4); Hematocrit 42.1 % (42.0-52.0); Hemoglobin 13.8 g/dL (14.0-18.0); Immature Granulocyte Absolute 0.02 K/mm3 (0.00-0.031); Immature Granulocyte Percent A 0.2 % (0-0.5); Lymphocytes Absolute Auto 2.63 K/mm3 (0.9-3.2); Mean Corpuscular HGB Conc 32.8 g/dl (32-36); Mean Corpuscular Hemoglobin 28.3 pg (26-34); Mean Corpuscular Volume 86.4 fl (80-100); Mean Platelet Volume 8.9 fl (7.4-10.4); Monocytes Absolute Auto 0.7 K/mm3 (0.1-0.6); Monocytes Percent Auto 8.3 % (2.6-8.5); Platelet Count Result 314 k/mm3 (150-375); Red Blood Count 4.87 M/mm3 (4.6-6.20); Red Cell Distribution Width 13.7 % (11.5-14.5); White Blood Count 8.8 K/mm3 (4.5-10.0)
[2024-11-21 18:50] LABS: Anion Gap 9 mmol/L (4-12); Blood Urea Nitrogen 14 mg/dL (9-20); Calcium 9.8 mg/dL (8.4-10.2); Carbon Dioxide 29 mmol/L (22-30); Chloride 101 mmol/L (98-107); Estimated CRCL calculation 139 ml/min; Estimated Glomerular Filt Rate > 60; Glucose 96 mg/dL (65-110); Lipase 43 U/L (23-300); Potassium 4.2 mmol/L (3.4-5.0); Sodium 139 mmol/L (137-145)
[2024-11-21 19:02] LABS: NT Pro B Type Natriuretic Pept 36 pg/mL (19.9-100); Troponin I < 0.012 ng/mL (0.000-0.034)
[2024-11-21 19:13] LABS: INR 0.9; Prothrombin Time 12.5 Seconds (11.1-14.7)
[2024-11-21 19:14] LABS: Partial Thromboplastin Time 25.7 Seconds (22.3-36.8)
[2024-11-21] MEDS: APIXABAN 5 MG TABLET 10 MG PO (20:12)
== END 2024-11-21 20:16 | disposition home or self-care (01) ==
PROVIDERS: Emergency Provider Physician Assistant
DX: I82.452 Acute embolism and thrombosis of left peroneal vein (principal); R07.89 Other chest pain; R06.02 Shortness of breath
CPT/HCPCS: 36415; 71275; 72131; 80048; 83690; 83880; 84484; 85025; 85610; 85730; 93005; 93970; 99284; A9270; Q9967

== ENCOUNTER 2025-06-26 08:23 | Outpatient (CLI) | payer OTHER, SELFPAY ==
--- NOTE | 2025-06-26 08:29 | EST_ITS ---
Patient Info Name: Theo Dixon Age: 39 years : 1985 Gender: Male Ht: 69 in Wt: 300 lbs BSA: 2.64 m2 HR: 63 bpm BP: 127 / 63 mmHg Technical Quality: Good Exam Date: 06/26/2025 8:52 AM Patient Status: O Admit Date: 06/26/2025 Exam Type: CA stress echo Treadmill exercise stress echocardiogram is performed. Staff Referring Physician: Lexy Means Traffic Circuit Engineer: Jimbo Henry III Attending Provider: Lexy Means Exercise Technologist: Jannette Calixto Exercise Physician: Patel aSntiago DO Summary 1. 1. Negative Mono exercise stress test for ischemic ST changes by ECG criteria. 2. 2. Reduced functional capacity, achieving 10 METs of workload. 3. 3. Appropriate HR response to exercise. 4. 4. Appropriate HR recovery at 1 minute post exercise. 5. 5. Negative stress echocardiogram for ischemia by wall motion analysis. 6. 6. Patient informed of the above results. Stress Echo Findings Left Ventricle Appropriate increase in LV endocardial thickening with systole. Appropriate augmentation of contractility with systole. No wall motion abnormality. Left Ventricle Normal LV systolic function, no wall motion abnormality. Protocol: Omno Stress ECG Details Stage: RECOVERY Duration (min): 4 min : 58 sec Speed (mph): 0.0 Grade (%): 0 HR (bpm): 99 SBP (mmHg): 148 DBP (mmHg): 57 METS: --- Stage: REST Duration (min): 5 min : 53 sec Speed (mph): 0.0 Grade (%): 0 HR (bpm): 74 SBP (mmHg): 127 DBP (mmHg): 63 METS: --- Stage: STAGE 3 Duration (min): 1 min : 0 sec Speed (mph): 3.4 Grade (%): 14 HR (bpm): 155 SBP (mmHg): 163 DBP (mmHg): 55 METS: --- Stage: STAGE 1 Duration (min): 2 min : 0 sec Speed (mph): 1.7 Grade (%): 10 HR (bpm): 110 SBP (mmHg): 127 DBP (mmHg): 63 METS: --- Stage: RECOVERY Duration (min): 9 min : 13 sec Speed (mph): 0.0 Grade (%): 0 HR (bpm): 97 SBP (mmHg): 122 DBP (mmHg): 63 METS: --- Stage: RECOVERY Duration (min): 2 min : 58 sec Speed (mph): 0.0 Grade (%): 0 HR (bpm): 106 SBP (mmHg): 150 DBP (mmHg): 56 METS: --- Stage: STAGE 1 Duration (min): 3 min : 0 sec Speed (mph): 1.7 Grade (%): 10 HR (bpm): 117 SBP (mmHg): 154 DBP (mmHg): 69 METS: --- Stage: STAGE 3 Duration (min): 2 min : 0 sec Speed (mph): 3.4 Grade (%): 14 HR (bpm): 163 SBP (mmHg): 163 DBP (mmHg): 55 METS: --- Stage: STAGE 2 Duration (min): 3 min : 0 sec Speed (mph): 2.5 Grade (%): 12 HR (bpm): 142 SBP (mmHg): 130 DBP (mmHg): 83 METS: --- Stage: RECOVERY Duration (min): 1 min : 58 sec Speed (mph): 0.0 Grade (%): 0 HR (bpm): 112 SBP (mmHg): 167 DBP (mmHg): 51 METS: --- Stage: STAGE 3 Duration (min): 2 min : 1 sec Speed (mph): 0.0 Grade (%): 0 HR (bpm): 163 SBP (mmHg): 163 DBP (mmHg): 55 METS: --- Stage: RECOVERY Duration (min): 6 min : 58 sec Speed (mph): 0.0 Grade (%): 0 HR (bpm): 96 SBP (mmHg): 148 DBP (mmHg): 57 METS: --- Stage: RECOVERY Duration (min): 0 min : 58 sec Speed (mph): 0.0 Grade (%): 0 HR (bpm): 124 SBP (mmHg): 167 DBP (mmHg): 51 METS: --- Stage: RECOVERY Duration (min): 8 min : 58 sec Speed (mph): 0.0 Grade (%): 0 HR (bpm): 97 SBP (mmHg): 122 DBP (mmHg): 63 METS: --- Stage: STAGE 2 Duration (min): 2 min : 0 sec Speed (mph): 2.5 Grade (%): 12 HR (bpm): 134 SBP (mmHg): 130 DBP (mmHg): 83 METS: --- Stage: RECOVERY Duration (min): 5 min : 58 sec Speed (mph): 0.0 Grade (%): 0 HR (bpm): 97 SBP (mmHg): 148 DBP (mmHg): 57 METS: --- Stage: RECOVERY Duration (min): 7 min : 58 sec Speed (mph): 0.0 Grade (%): 0 HR (bpm): 97 SBP (mmHg): 148 DBP (mmHg): 57 METS: --- Stage: STAGE 1 Duration (min): 1 min : 0 sec Speed (mph): 1.7 Grade (%): 10 HR (bpm): 83 SBP (mmHg): 127 DBP (mmHg): 63 METS: --- Stage: REST Duration (min): 0 min : 53 sec Speed (mph): 0.0 Grade (%): 0 HR (bpm): 67 SBP (mmHg): 127 DBP (mmHg): 63 METS: --- Stage: STAGE 2 Duration (min): 1 min : 0 sec Speed (mph): 2.5 Grade (%): 12 HR (bpm): 125 SBP (mmHg): 154 DBP (mmHg): 69 METS: --- Stage: RECOVERY Duration (min): 3 min : 58 sec Speed (mph): 0.0 Grade (%): 0 HR (bpm): 99 SBP (mmHg): 150 DBP (mmHg): 56 METS: --- Rest HR: 74 bpm Peak HR: 164 bpm Rest Sys BP: 127 mmHg Peak Sys BP: 167 mmHg Max Pred HR: 179 bpm % Max Pred HR: 92 % Target HR: 152 bpm Max RPP: 27,388 bpm*mmHg Lopez Score: 2 Termination Reason: Reached target heart rate or workload Cardiac Symptoms: Shortness of breath Max ST Seg Deviation: 1 mm Total Time: 8 min : 1 sec Rest Burr BP: 63 mmHg Peak Burr BP: 51 mmHg Angina Score: None Total METS: 10.3 Resting ECG Sinus rhythm. Stress ECG No ST changes. Arrhythmias None. Report Signatures Stress ECG Echo
--- OUTSIDE RECORDS SUMMARY | 2025-06-26 08:33 | XMS_ITS | Clinical Summary ---
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
== END 2025-06-26 08:24 | disposition home or self-care (01) ==
DX: R07.9 Chest pain, unspecified (principal)
CPT/HCPCS: 93351

== ENCOUNTER 2025-07-16 02:10 | Day surgery (SDC) | payer OTHER, SELFPAY ==
[2025-07-09 12:13] VITALS: BMI 44.4
--- OUTSIDE RECORDS SUMMARY | 2025-07-16 02:14 | XMS_ITS | Clinical Summary ---
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
[2025-07-16 12:54] VITALS: BP 154/89; PULSE 76; RESP 16; TEMP 36.3; O2SAT 100; BMI 41.4
[2025-07-16] MEDS: LACTATED RINGERS 1,000 ML 150 ML IV CONT (13:11)
--- NOTE | 2025-07-16 14:04 | P.PNAN_ITS ---
Anes - Initial Pre Proc Eval Procedure: Operation Date: 07/16/25 14:00 Proposed Procedures p Diagnostic Colonoscopy - Otoniel Howard MD Date/Time: 07/16/25 14:04 Surgeon: Otoniel Howard MD Pre Op Diagnosis: Melena Patient Data Age: 39 Gender: M Height: 1.75 m Weight: 127.2 kg Last Vital Signs Temp 36.3 C L 07/16/25 12:54 Pulse 76 07/16/25 12:54 Resp 16 07/16/25 12:54 BP 154/89 H 07/16/25 12:54 Pulse Ox 100 07/16/25 12:54 O2 Del Method Room Air 07/16/25 12:54 Allergies Allergy/AdvReac Type Severity Reaction Status Date / Time No Known Allergies Allergy Verified 07/16/25 12:58 Home Medications ?Medication ?Instructions ?Recorded ?Confirmed ?Type pantoprazole 40 mg tablet,delayed 40 mg PO QAM #90 tab s 02/23/25 07/16/25 Rx release Patient hx anesthesia problems: none Family hx anesthesia problems: none Results Review: All pre-operative results and documents have been reviewed as part of the pre- operative evaluation. [facility] Past Medical History Medical History HEIDI (obstructive sleep apnea) History of DVT (deep vein thrombosis) Patient denies medical problems Surgical History Surgical History No pertinent past surgical history Social History Social History Smoking status: Never smoker Alcohol intake: never Substance use: current Substance use type: marijuana Other substance usage details: Edibles and smoked Gender identity (if verbalized by the patient): Male Anes - Eval Final PreProcedure Day of Procedure 07/16/25 14:04 Patient weight: morbidly obese Heart: regular rate and rhythm Lungs: clear to auscultation Airway: Mallampati scale class III Neurological: alert and oriented Last oral intake: >/= 8 hours ASA classification: III Emergent: no Anesthetic plan: proceed Anesthesia type and monitoring: general GIVS and standard monitoring Results Review: All pre-operative results and documents have been reviewed as part of the pre- operative evaluation. Informed Consent: The patient's anesthetic plan and its attendant risks and benefits were discussed with the patient/family/POA. Questions were solicited and answers provided to the satisfaction of the patient/family/POA.
--- NOTE | 2025-07-16 14:16 | P.HP_ITS ---
History of Present Illness History of Present Illness Consent: Risks, benefits, and alternatives have been discussed and questions answered. Patient agrees to proceed with procedure. Chief complaint: Melena Narrative: Theo Dixon is a 39 year old male here for first colonoscopy, noted intermittent blood in stool Review of Systems Review of Systems: All systems reviewed & are unremarkable except as noted in HPI and below PMFSH Past Medical History Medical History (Updated 07/16/25 @ 14:17 by Otoniel Howard MD) Rectal bleeding HEIDI (obstructive sleep apnea) History of DVT (deep vein thrombosis) Patient denies medical problems Surgical History Surgical History No pertinent past surgical history Social History Social History Smoking status: Never smoker Alcohol intake: never Substance use: current Substance use type: marijuana Other substance usage details: Edibles and smoked Gender identity (if verbalized by the patient): Male Meds Home Medications and Allergies Home Medications ?Medication ?Instructions ?Recorded ?Confirmed ?Type pantoprazole 40 mg tablet,delayed 40 mg PO QAM #90 tab s 02/23/25 07/16/25 Rx release Allergies Allergy/AdvReac Type Severity Reaction Status Date / Time No Known Allergies Allergy Verified 07/16/25 12:58 Vital Signs Vital Signs - 24 hr 07/16/25 12:54 Temperature 97.4 F L Pulse Rate 76 Respiratory Rate 16 Blood Pressure 154/89 H Pulse Oximetry 100 Oxygen Delivery Room Air Exam Const: General: comfortable and no acute distress HENMT: Face/Nose/Sinus: Normal nares present Eyes: General: appearance normal, both eyes and all related structures Neck: Neck: no JVD Resp: Auscultation: clear to auscultation bilaterally Cardio: Rate: regular rate Rhythm: regular rhythm GI: Inspection: non-distended GI Palp: Yes Soft to palpation Skin: General skin exam: normal color Extrem: General: normal to inspection Psych: Mental Status: mental status grossly normal Assessment and Plan Assessment and plan (1) Rectal bleeding: Code(s): K62.5 - Hemorrhage of anus and rectum Status: Acute Assessment and Plan: colonoscopy
--- NOTE | 2025-07-16 14:33 | S_PTH ---
PATIENT: Theo Dixon LOC: [place] [facility]#:[id number] AGE/SX: 39/M ROOM: RE07/16/[address]: Otoniel Howard MD : 1985 BED: DIS: 07/16/2025 SPEC #: [id number] RECD: 07/17/25 07:28 STATUS: [place]IL[place] REGary #: [id number] [place]: 07/16/25 14:[address]: Otoniel Howard DEPT: [facility] Surgical RECD BY: Kareen Meléndez ENTERED: 07/17/25 07:29 SP TYPE: Surgical OTHR DR: Shiva El MD Tissues: A - Colon Polypectomy Procedures: Hematoxylin and Eosin Stain Gross and Microscopic Level 4
[2025-07-16 14:38] VITALS: BP 128/84; PULSE 72; RESP 18; O2SAT 99
[2025-07-16 14:48] VITALS: BP 139/83; PULSE 64; RESP 20; O2SAT 100
[2025-07-16 14:58] VITALS: BP 127/77; PULSE 63; RESP 20; O2SAT 100
== END 2025-07-16 15:04 | disposition home or self-care (01) ==
PROVIDERS: PCP Family Medicine; Visit Provider Internal Medicine Gastroenterology
PROC: 0DJD8ZZ Inspection of Lower Intestinal Tract, Via Natural or Artificial Opening Endoscopic (ICD-10-PCS; CPT 45378; principal; 2025-07-16 14:00)
DX: D12.2 Benign neoplasm of ascending colon (principal); G47.33 Obstructive sleep apnea (adult) (pediatric); F12.90 Cannabis use, unspecified, uncomplicated; E66.01 Morbid (severe) obesity due to excess calories; Z68.41 Body mass index [BMI] 40.0-44.9, adult; Z86.718 Personal history of other venous thrombosis and embolism
CPT/HCPCS: 45385; 88305; J2003; J2704; J7120